=== PATIENT | female | born 1995 | race Two or more races ===

== ENCOUNTER 2018-05-06 16:28 | Outpatient (CLI) | payer OTHER ==
[2018-05-06 18:09] LABS: BACTERIA (WET MOUNT) 4+ BACTERIA SEEN; EPITHELIALS (WET MOUNT) 3+ EPITHELIALS SEEN; T.VAGINALIS (WET MOUNT) NO TRICHOMONAS SEEN; WBCS (WET MOUNT) RARE WBCS SEEN; YEAST (WET MOUNT) NO YEAST SEEN
[2018-05-06 18:13] LABS: APPEARANCE,URINE SLIGHTLY-CLOUDY; BILIRUBIN,URINE NEGATIVE (NEGATIVE); COLOR,URINE YELLOW; GLUCOSE, URINE NEGATIVE (NEGATIVE); KETONES,URINE NEGATIVE (NEGATIVE); LEUKOCYTE ESTERASE,URINE NEGATIVE (NEGATIVE); NITRITE,URINE NEGATIVE (NEGATIVE); PROTEIN,URINE NEGATIVE (NEGATIVE); URINE SPECIFIC GRAVITY 1.013
[2018-05-06 18:28] LABS: URINE AMPHETAMINES SCREEN NEGATIVE; URINE BARBITURATES SCREEN NEGATIVE; URINE BENZODIAZEPINES SCREEN NEGATIVE; URINE COCAINE SCREEN NEGATIVE; URINE MARIJUANA (THC) SCREEN NEGATIVE; URINE METHADONE SCREEN NEGATIVE; URINE PHENCYCLIDINE SCREEN NEGATIVE
[2018-05-06 19:36] LABS: CHLAM PCR NOT DETECTED (NOT DETECT); GON PCR NOT DETECTED (NOT DETECT)
--- NOTE | 2018-05-06 20:15 | RADIOLOGY REPORT (SQ) ---
EXAM DESCRIPTION: US LIMITED COMPLETED DATE/TME: 05/06/2018 17:51 CLINICAL HISTORY: complete OB sono, lovely, efw, placenta loc COMPARISON: None. FINDINGS: There is a single intrauterine in cephalic presentation. The placenta is posterior and within normal limits. Amniotic fluid index was calculated at 12.1 cm. heart motion was calculated at 114 bpm. The cervix measured 5.4 cm in length. The biparietal diameter measures 6.7 cm corresponding to 27 weeks. The head circumference measured 24.5 cm corresponding to 26 weeks and four days. Abdominal circumference measured 23.3 cm corresponding to 27 weeks and four days. The femur length measured 5.0 cm corresponding to 27 weeks. Composite gestational age is of 27 weeks with estimated of delivery August 05, 2018. anatomical survey was limited. Estimated weight of 1052 g +/- 156 g. IMPRESSION: Single live intrauterine of approximately 27 weeks. Limited anatomical survey.
== END 2018-05-06 20:20 | disposition home or self-care (01) ==
LOC: LC 16:28
PROVIDERS: ATTEND Obstetrics & Gynecology
PROC: 4A1HXCZ Monitoring of Products of Conception, Cardiac Rate, External Approach (ICD-10-PCS; principal; 2018-05-06)
DX: O46.93 Antepartum hemorrhage, unspecified, third trimester (principal); Z3A.27 27 weeks gestation of pregnancy
CPT/HCPCS: 59899; 87210; 81001; 80307; 87491; 87591; 76815; Q0114

== ENCOUNTER 2018-07-26 02:31 | Inpatient (IN) | payer OTHER ==
[2018-07-26 03:09] LABS: APPEARANCE,URINE SLIGHTLY-CLOUDY; BILIRUBIN,URINE NEGATIVE (NEGATIVE); COLOR,URINE YELLOW; GLUCOSE, URINE NEGATIVE (NEGATIVE); KETONES,URINE NEGATIVE (NEGATIVE); LEUKOCYTE ESTERASE,URINE NEGATIVE (NEGATIVE); NITRITE,URINE NEGATIVE (NEGATIVE); PROTEIN,URINE NEGATIVE (NEGATIVE); URINE SPECIFIC GRAVITY 1.011; UROBILINOGEN,URINE NEGATIVE mg/dL (<2.0)
[2018-07-26 03:27] LABS: URINE AMPHETAMINES SCREEN NEGATIVE; URINE BARBITURATES SCREEN NEGATIVE; URINE BENZODIAZEPINES SCREEN NEGATIVE; URINE COCAINE SCREEN NEGATIVE; URINE MARIJUANA (THC) SCREEN NEGATIVE; URINE METHADONE SCREEN NEGATIVE; URINE PHENCYCLIDINE SCREEN NEGATIVE
--- NOTE | 2018-07-26 04:55 | RADIOLOGY REPORT (SQ) ---
EXAM: Ultrasound limited CLINICAL DATA: 23-year-old female with history of abruption, rule out placental abruption. TECHNICAL DATA: Transabdominal ultrasound imaging was performed through the gravid uterus. This study was performed on 07/26/2018 at 4:18 AM on COMPARISON: Prior ultrasound OB limited performed on 05/06/2018. FINDINGS: ANATOMIC EVALUATION FETUS single POSITION cephalic HEART RATE 141 bpm AMNIOTIC FLUID 6.9 cm DAVID PLACENTA LOCATION anterior PREVIA low lying without evidence of abruption. CERVIX 2.9 cm in length CLINICAL DATES LMP 10/30/2017 [place] 38 weeks three days EDC 08/06/2018 IMPRESSION: 1. Single living intrauterine in cephalic presentation. 2. The placenta is anterior in location without evidence of placenta previa. However, a low-lying placenta is not excluded. There is no sonographic evidence to suggest placental abruption. 3. The amniotic fluid index measures 6.9 cm.
[2018-07-26] MEDS ORDERED: CITRIC ACID/SODIUM CITRATE ORAL SOLN 15 ML UDCUP ONE (06:33)
[2018-07-26] MEDS ORDERED: CEFAZOLIN 1 GM/D5W RTU 1 GM/50 ML RTUPB IV ONE ×2 (06:33→06:51)
[2018-07-26] MEDS ORDERED: OXYTOCIN 10 UNIT/ML VIAL ONE (06:46)
[2018-07-26] MEDS ORDERED: FENTANYL CITRATE INJ/PF 250 MCG/5 ML AMPULE ONE (06:46)
--- NOTE | 2018-07-26 07:02 | Admission Physical ---
Datetime Report Generated by CPN: 07/26/2018 07:02 CURRENT ADMISSION Chief Complaint: Other Indication for Induction: Not Applicable Admit Impression : Term, Intrauterine Admit Plan: Admit to Unit ALLERGIES Medication Allergies: Yes Medication Allergies: vancomycin (07/26/2018) Latex: No Latex Allergies OBSTETRICAL HISTORY EDC: 08/06/2018 00:00 : 2 Para: 1 Term: 1 Ectopic: 0 Livin Cesareans: 0 VBACs: 0 Multiple Births: 0 Gestational Diabetes: No Rh Sensitization: No Incompetent Cervix: No BIPIN: No Infertility: No ART Treatment: No Uterine Anomaly: No IUGR: No Hx Previous C/S: No Macrosomia: No Hx Loss/Stillborn: No PIH: No Hx : No Placenta Previa/Abruption: No Depression/PP Depression: No PTL/PROM: No Post Hemorrhage: No Current Procedures: Ultrasound Obstetrical History Comments: Hx hemmorage after last per pt subchorionic bleed, 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 [id number] MEDICAL HISTORY Diabetes: No Blood Transfusion: No Pulmonary Disease (Asthma, TB): No Breast Disease: No Hypertension: No Rheumatologist Surgery: No Heart Disease: No Hosp/Surgery: No Autoimmune Disorder: No Anesthetic Complications: No Kidney Disease: No Abnormal Pap Smear: No Neuro/Epilepsy: No Psychiatric Disorders: No Other Medical Diseases: No Hepatitis/Liver Disease: No Significant Family History: No Varicosities/Phlebitis: No Trauma/Violence : No Thyroid Dysfunction: No Medical History Comments: left knee surgery, chest tube age 5, T _ A INFECTIOUS HISTORY Gonorrhea: No Genital Herpes: No Chlamydia: No Tuberculosis: No Syphilis: No Hepatitis: No HIV/AIDS Exposure: No Rash or Viral Illness: No HPV: No PHYSICAL EXAM General: Normal HEENT: Normal Neurologic: Normal Thyroid: Normal Heart: Normal Lungs: Normal Breast: Deferred Back: Normal Abdomen: Normal Genitourinary Exam: Normal Extremities: Normal DTRs: Normal Pelvic Type: Adequate FETUS A EGA: 38.3 Admit Comment: abrutio placenta PLANS FOR LABOR AND DELIVERY Pain Management: Epidural Feeding Preference: Breast Benefit of Breast Feed Discussed: Yes Circumcision: Yes INFORMED CONSENT Signature: with User ID: [email or web address]
[2018-07-26] MEDS ORDERED: DIPH/PERTUSS(ACELL)/TETANUS VAC/PF 0.5 ML SYR (>=10YO) IM PRN (07:05)
[2018-07-26] MEDS ORDERED: PROMETHAZINE HCL INJ 25 MG/1 ML VIAL IV PRN (07:05)
[2018-07-26] MEDS ORDERED: OXYTOCIN/NORMAL SALINE 20 UNIT/1,000 ML RTUINJ IV PRN (07:05)
[2018-07-26] MEDS ORDERED: MEASLES,MUMPS&RUBELLA VACC/PF 0.5 ML VIAL SUBCUT PRN (07:05)
[2018-07-26] MEDS ORDERED: ACETAMINOPHEN 325 MG TABLET PO PRN (07:05)
[2018-07-26 07:15] LABS: ABSOLUTE BASOPHILS # (AUTO) 0.1 10^3/uL (0.0-0.2); ABSOLUTE EOSINOPHILS # (AUTO) 0.1 10^3/uL (0.0-0.6); ABSOLUTE LYMPHOCYTES (AUTO) 3.6 10^3/uL (0.5-4.7); ABSOLUTE MONOCYTES (AUTO) 1.2 10^3/uL (0.1-1.4); ABSOLUTE NEUT (AUTO) 10.5 10^3/uL (1.7-8.2); BASOPHILS % (AUTO) 0.9 % (0-2); EOSINOPHILS % (AUTO) 0.9 % (0-6); HEMATOCRIT 28.9 % (36.0-47.0); HEMOGLOBIN 9.7 g/dL (12.0-15.5); LYMPHOCYTES % (AUTO) 23.2 % (13-45); MEAN CORPUSCULAR HEMOGLOBIN 27.7 pg (27.0-33.4); MEAN CORPUSCULAR HGB CONC 33.7 g/dL (32.0-36.0); MEAN CORPUSCULAR VOLUME 82 fl (80-97); PLATELET COUNT 174 10^3/uL (150-450); RED BLOOD COUNT 3.51 10^6/uL (3.72-5.28); RED CELL DISTRIBUTION WIDTH 13.3 % (11.5-14.0); TOTAL CELLS COUNTED % (AUTO) 100 %; WHITE BLOOD COUNT 15.6 10^3/uL (4.0-10.5)
[2018-07-26] MEDS ORDERED: ACETAMINOPHEN 1,000 MG/100 ML RTUPB IV ONE (07:43)
[2018-07-26] MEDS ORDERED: PROPOFOL INJ 200 MG/20 ML VIAL IV ONE (07:59)
[2018-07-26] MEDS ORDERED: MEPERIDINE HCL/PF INJ 25 MG/1 ML DISP.SYRIN ONE (08:00)
--- NOTE | 2018-07-26 08:08 | RADIOLOGY REPORT (SQ) ---
EXAM DESCRIPTION: KUB/ABDOMEN (SINGLE VIEW) COMPLETED DATE/TIME: 07/26/2018 7:30 am REASON FOR STUDY: UNABLE TO COUNT INSTRUMENTS COMPARISON: None. NUMBER OF VIEWS: One view. TECHNIQUE: Supine portable radiographic image of the Abdomen introduced Acquired. LIMITATIONS: None. FINDINGS: Portable AP pelvis film in the OR after stat . No retained radiopaque surgical i nstruments are identified over the pelvis. Rivas catheter in the bladder. IMPRESSION: No retained radiopaque surgical instruments are identified over the pelvis TECHNICAL DOCUMENTATION: JOB ID: [id number] [employer]- All Rights Reserved Reading location - IP/workstation name: [email or web address]
--- NOTE | 2018-07-26 08:40 | OPERATIVE REPORT E ---
Operative Report NAME: URIEL STRICKLAND : 1995 AGE: 23Y DATE OF SURGERY: 07/26/2018 ROOM: LR200 PREOPERATIVE DIAGNOSIS: IUP early 38 weeks, abruption of placenta. POSTOPERATIVE DIAGNOSIS: IUP early 38 weeks, abruption of placenta. PROCEDURE: Emergency section, delivery of a viable infant with Apgars of 8 and 8. Weight is pending. SURGEON: Manish GARVEY M.D. ESTIMATED BLOOD LOSS: Less than 600 mL. TISSUE REMOVED OR ALTERED: Placenta. ANESTHESIA: General. DESCRIPTION OF PROCEDURE: The patient was placed in a supine position, rolled on her right side, prepped and draped in sterile fashion. A Pfannenstiel incision was made. Incision extended through the subcutaneous tissue and fascia with sharp dissection. The fascia was bluntly and sharply divided. Parietal peritoneum was entered with blunt dissection. Uterus nicked in the midline and extended bilaterally. Infant was then delivered through abdominal incision. Nose and mouth suctioned with a bulb syringe. Cord was clamped. was passed from the table. Placenta was manually extracted. There was evidence of an abruption. The uterus closed in 2 layers using 0 Vicryl first with a running stitch and a second Lembert stitch imbricating the first one. The fascia was then closed with 0 Vicryl and the skin was closed with subcu absorbable verenice. She tolerated it well and was taken to recovery in good condition and the infant went to nursery in good condition. DICTATING PHYSICIAN: Manish GARVEY M.D. [id number] Y#: [id number] ID: [id number] JOB#: [id number] ACCT: [id number] cc:Manish GARVEY M.D. >
[2018-07-26] MEDS ORDERED: MORPHINE SULFATE 10 MG/ML INJ ONE (08:45)
[2018-07-26] MEDS: MORPHINE SULFATE 10 MG/ML INJ IM PRN ×3 (09:02→19:10)
[2018-07-26 10:27] LABS: HEMATOCRIT 28.4 % (36.0-47.0); HEMOGLOBIN 9.4 g/dL (12.0-15.5); MEAN CORPUSCULAR HEMOGLOBIN 27.4 pg (27.0-33.4); MEAN CORPUSCULAR HGB CONC 33.3 g/dL (32.0-36.0); MEAN CORPUSCULAR VOLUME 82 fl (80-97); RED BLOOD COUNT 3.45 10^6/uL (3.72-5.28); RED CELL DISTRIBUTION WIDTH 13.4 % (11.5-14.0); WHITE BLOOD COUNT 13.8 10^3/uL (4.0-10.5)
[2018-07-26] MEDS: OXYCODONE-ACETAMINOPHEN 5-325 MG TABLET PO PRN ×3 (10:36→21:52)
[2018-07-26 10:50] LABS: PLATELET COUNT 96 10^3/uL (150-450)
[2018-07-26 10:53] LABS: ABSOLUTE LYMPHOCYTES# (MANUAL) 1.2 10^3/uL (0.5-4.7); ABSOLUTE MONOCYTES # (MANUAL) 0.7 10^3/uL (0.1-1.4); ABSOLUTE NEUTROPHILS# (MANUAL) 11.9 10^3/uL (1.7-8.2); BAND NEUTROPHILS % (MANUAL) 1 % (3-5); BASOPHILS % (MANUAL) 0 % (0-2); EOSINOPHILS % (MANUAL) 0 % (0-6); LYMPHOCYTES % (MANUAL) 9 % (13-45); MONOCYTES % (MANUAL) 5 % (3-13); SEGMENTED NEUTROPHILS % (MAN) 85 % (42-78); TOTAL CELLS COUNTED 100
[2018-07-26 10:54] LABS: PLATELET COMMENT DECREASED; RBC MORPHOLOGY COMMENT NORMO-CYTIC/CHROMIC
[2018-07-26] MEDS: DOCUSATE SODIUM 100 MG CAPSULE PO SCH ×2 (11:39→17:08)
[2018-07-26] MEDS: PRENATAL VITAMIN W DHA CAPSULE PO SCH (11:39)
[2018-07-26] MEDS: KETOROLAC TROMETHAMINE INJ/PF 30 MG/1 ML SDV IV SCH ×2 (13:22→23:15)
[2018-07-26] MEDS ORDERED: SUCCINYLCHOLINE CHLORIDE INJ 200 MG/10 ML VIAL ONE (13:48)
[2018-07-26] MEDS ORDERED: ONDANSETRON HCL INJ/PF 4 MG/2 ML SDV ONE (13:48)
[2018-07-26] MEDS ORDERED: METOCLOPRAMIDE HCL INJ/PF 10 MG/2 ML SDV ONE (13:48)
[2018-07-26] MEDS ORDERED: PHENYLEPHRINE HCL INJ/PF 10 MG/1 ML SDV ONE (13:48)
[2018-07-26] MEDS ORDERED: DEXAMETHASONE SOD PHOSPHATE INJ 4 MG/1 ML VIAL ONE (13:48)
[2018-07-26 16:32] LABS: HEMATOCRIT 24.8 % (36.0-47.0); HEMOGLOBIN 8.2 g/dL (12.0-15.5); MEAN CORPUSCULAR HGB CONC 33.1 g/dL (32.0-36.0); MEAN CORPUSCULAR VOLUME 82 fl (80-97); RED BLOOD COUNT 3.04 10^6/uL (3.72-5.28); RED CELL DISTRIBUTION WIDTH 13.6 % (11.5-14.0); WHITE BLOOD COUNT 11.1 10^3/uL (4.0-10.5)
[2018-07-26 16:52] LABS: PLATELET COUNT 99 10^3/uL (150-450)
[2018-07-27] MEDS: OXYCODONE-ACETAMINOPHEN 5-325 MG TABLET PO PRN ×5 (02:18→21:33)
[2018-07-27] MEDS: KETOROLAC TROMETHAMINE INJ/PF 30 MG/1 ML SDV IV SCH ×3 (05:58→23:07)
[2018-07-27 06:45] LABS: HEMATOCRIT 22.5 % (36.0-47.0); MEAN CORPUSCULAR HEMOGLOBIN 27.4 pg (27.0-33.4); MEAN CORPUSCULAR HGB CONC 33.3 g/dL (32.0-36.0); MEAN CORPUSCULAR VOLUME 82 fl (80-97); RED BLOOD COUNT 2.74 10^6/uL (3.72-5.28); RED CELL DISTRIBUTION WIDTH 13.5 % (11.5-14.0); WHITE BLOOD COUNT 6.9 10^3/uL (4.0-10.5)
[2018-07-27 06:49] LABS: HEMOGLOBIN 7.5 g/dL (12.0-15.5)
[2018-07-27 07:11] LABS: PLATELET COUNT 87 10^3/uL (150-450)
--- NOTE | 2018-07-27 08:18 | Delivery Summary ---
Del Sum A-C Datetime Report Generated by CPN: 07/27/2018 08:17 DELIVERY PERSONNEL DELIVERY PERSONNEL: [id number] Delivery Doctor:: Maciel Perry MD Delivery Doctor:: Maciel Perry MD Anesthesiologist:: Alex Orellana MD Anesthesiologist:: Alex Orellana MD PROJECT DEVELOPMENT ENGINEER:: Paco Ndiaye CRNA PROJECT DEVELOPMENT ENGINEER:: Paco Ndiaye CRNA Labor and Delivery Nurse:: Megha Oconnell RNoutdoor studies director Nurse:: Ileana Brian RN Nurse Tech:: Megha Oconnell RN [employer]/FILLING MACHINE OPERATOR: Marlen Roque, QUALITY ASSOCIATE [employer]/FILLING MACHINE OPERATOR: Marlen Roque QUALITY ASSOCIATE [employer]/FILLING MACHINE OPERATOR: Xiomara Stiles MATERNAL INFORMATION Delivery Anesthesia: General Maternal Complications: Abruptio Placenta LABOR SUMMARY EDC: 08/06/2018 00:00 No. Babies in Womb: 1 Attempted: No LABOR INFORMATION Reason for Induction: Not Applicable Oxytocin: N/A Group B Beta Strep: negative Antibiotics # of Doses: 0 Antibiotics Time of Last Dose: N/A Name of Antibiotic Given: N/A Steroids Given: None Reason Steroids Not Administered: Not Applicable MEMBRANES Membranes Rupture Method: Artificial Rupture of Membranes: 07/26/2018 06:43 Length of Rupture (hr): 0.00 Amniotic Fluid Color: Clear Amniotic Fluid Amount: Moderate VAGINAL DELIVERY Episiotomy: None Laceration #1: None Laceration Extension #1: N/A Laceration Repair: Not Applicable CSECTION DELIVERY Primary Indication: Nonreassuring Status Secondary Indication: Abruptio Placenta CSection Urgency: Emergency CSection Incidence: Primary Labor: Labor Elective: Nonelective CSection Incision: Lower Uterine Transverse CSection Incision: Lower Uterine Transverse BABY A INFORMATION Infant Delivery Date/Time: 07/26/2018 06:43 Method of Delivery: Born in Route : No : N/A Forceps: N/A Vacuum Extraction: N/A Shoulder Dystocia : No PRESENTATION/POSITION BABY A Presentation: Cephalic SCORES BABY A Heart Rate 1 min: >100 bpm Resp Effort 1 min: Good Cry Reflex Irritability 1 min: Cough or Sneeze or Pulls Away Muscle Tone 1 min: Active Motion Color 1 min: Blue/Pale Resuscitation Effort 1 min: Tactile Stimulation SCORE 1 MIN: 8 Heart Rate 5 min: >100 bpm Resp Effort 5 min: Good Cry Reflex Irritability 5 min: Cough or Sneeze or Pulls Away Muscle Tone 5 min: Active Motion Color 5 min: Blue/Pale Resuscitation Effort 5 min: Tactile Stimulation SCORE 5 MIN: 8 INFANT INFORMATION BABY A Gestational Age at Delivery: 38.3 Gestational Status: Early Term- 37- 38.6 Weeks Outcome : Liveborn Infant Condition : Stable Sex: Male WEIGHT/LENGTH BABY A Birthweight (gm): 3330 Infant Weight (lb): 7 Infant Weight (oz): 5 Length (in): 19.50 Infant Length (cm): 49.53 CORD INFORMATION BABY A No. Cord Vessels: 3 Nuchal Cord : N/A Cord Blood Taken: Yes-For Storage (Mom's Blood type +) ASSESSMENT BABY A Complications: None Physical Findings at Delivery: Within Normal Limits Transferred To: [facility] BABY B INFORMATION : N/A SIGNATURES Signature: with User ID: [email or web address]
[2018-07-27] MEDS: DOCUSATE SODIUM 100 MG CAPSULE PO SCH ×2 (10:08→18:31)
[2018-07-27] MEDS: PRENATAL VITAMIN W DHA CAPSULE PO SCH (10:08)
[2018-07-27] MEDS ORDERED: MORPHINE SULFATE 10 MG/ML INJ IV ONE (10:30)
--- NOTE | 2018-07-27 10:32 | PDOC PROGRESS REPORT ---
Subjective-OB Progress Note for:: 07/27/18 - POD#1, s/p Primary , abruption. pt with PPH approx 1500 ml yesterday. Hx of bicornuate uterus. Pt is , A+, Rubella Non-Immune. C/o incisional pain, unable to take Motrin due to low Plts. Not time for more Percocet, so will give a one time dose of IM Morphine. Physical Exam (OB) Vital Signs: Temp Pulse Resp BP Pulse Ox 97.9 F 122 H 18 134/87 H 100 07/27/18 09:32 07/27/18 09:41 07/27/18 09:41 07/27/18 09:41 07/27/18 09:41 Intake & Output 07/26/18 07/27/18 07/28/18 06:59 06:59 06:59 Intake Total 1479 Output Total 1875 Balance -396 Weight 72.665 kg - General General Appearance: Appears well, Alert In distress: Mild - PIH/Pre-Eclampsia DTR's: 2 + Clonus: Negative Headache: Absent Epigastric Pain: No Visual Changes: No - Dressing Removed: No Incision: Dressing - Lochia Lochia Amount: Small 10-25 ml Lochia Color: Rubra/Red - Abdomen Description: Tender, Soft Hernia Present: No Fundal Description: Firm, Midline Fundal Height: u/u - u/2 - HEENT Eyes: Normal Ears: Normal - Respiratory Respiratory Status: No respiratory distress Chest Status: Nontender Breath sounds: Clear - Cardiovascular Rhythm: Regular Heart Sounds: Normal auscultation - Abdominal Inspection: Normal Distension: No distension Abdominal Notes: +bowel sounds present - Genitourinary Female External exam: Normal Genitourinary Note: voiding - Extremities Upper extremity: Normal inspection Lower extremities: Normal inspection - Neurological Cognition: Normal Orientation: AAOx4 - Psychological Associated symptoms: Normal affect, Normal mood - Skin Skin Temperature: Warm Skin Moisture: Dry Objective-Diagnostic Laboratory: 07/27/18 06:10 07/26/18 07/26/18 07/27/18 10:00 15:59 06:10 WBC 13.8 H 11.1 H 6.9 RBC 3.45 L 3.04 L 2.74 L Hgb 9.4 L 8.2 L 7.5 L Hct 28.4 L 24.8 L 22.5 L MCV 82 82 82 MCH 27.4 27.0 27.4 MCHC 33.3 33.1 33.3 RDW 13.4 13.6 13.5 Plt Count 96 L 99 L 87 L Seg Neutrophils % Not Reportable Lymphocytes % Not Reportable Monocytes % Not Reportable Eosinophils % Not Reportable Basophils % Not Reportable Absolute Neutrophils Not Reportable Absolute Lymphocytes Not Reportable Absolute Monocytes Not Reportable Absolute Eosinophils Not Reportable Absolute Basophils Not Reportable Assessment and Plan(PN) - Assessment and Plan (1) Acute blood loss anemia Is this a current diagnosis for this admission?: Yes (2) Bicornuate uterus affecting in third trimester, antepartum Is this a current diagnosis for this admission?: Yes (3) Anemia with low platelet count Is this a current diagnosis for this admission?: Yes (4) Placental abruption, delivered, current hospitalization Is this a current diagnosis for this admission?: Yes (5) hemorrhage Qualifiers: hemorrhage type: coagulation defects Qualified Code(s): O72.3 - coagulation defects Is this a current diagnosis for this admission?: Yes (6) Vaginal delivery Is this a current diagnosis for this admission?: No - Time Spent with Patient Time with patient: Less than 15 minutes Medications reviewed and adjusted accordingly: Yes - Disposition Anticipated Discharge: Home Within: within 48 hours
[2018-07-27] MEDS: SIMETHICONE 80 MG TAB.CHEW PO PRN (16:31)
[2018-07-28] MEDS: OXYCODONE-ACETAMINOPHEN 5-325 MG TABLET PO PRN ×6 (02:14→21:47)
[2018-07-28] MEDS: KETOROLAC TROMETHAMINE INJ/PF 30 MG/1 ML SDV IV SCH ×3 (06:23→21:57)
[2018-07-28 07:06] LABS: HEMATOCRIT 21.3 % (36.0-47.0); MEAN CORPUSCULAR HEMOGLOBIN 27.9 pg (27.0-33.4); MEAN CORPUSCULAR HGB CONC 33.9 g/dL (32.0-36.0); MEAN CORPUSCULAR VOLUME 82 fl (80-97); RED BLOOD COUNT 2.59 10^6/uL (3.72-5.28); RED CELL DISTRIBUTION WIDTH 13.9 % (11.5-14.0); WHITE BLOOD COUNT 6.5 10^3/uL (4.0-10.5)
[2018-07-28 08:07] LABS: PLATELET COUNT 98 10^3/uL (150-450)
[2018-07-28 08:08] LABS: HEMOGLOBIN 7.2 g/dL (12.0-15.5)
[2018-07-28] MEDS ORDERED: NORMAL SALINE 250 ML IV PRN (09:15)
--- NOTE | 2018-07-28 09:21 | PDOC PROGRESS REPORT ---
Subjective-OB Progress Note for:: 07/28/18 Subjective: Sitting up in bed with baby, hsb sleeping, feels SOB and weak, discussing stat c/s, passing gas, eating, pain under control Physical Exam (OB) Vital Signs: Temp Pulse Resp BP Pulse Ox 97.9 F 106 H 16 110/64 97 07/28/18 07:24 07/28/18 07:24 07/28/18 07:24 07/28/18 07:24 07/28/18 07:24 Intake & Output 07/27/18 07/28/18 07/29/18 06:59 06:59 06:59 Intake Total 1479 1600 Output Total 1875 Balance -396 1600 - PIH/Pre-Eclampsia DTR's: 2 + Clonus: Negative Headache: Absent Epigastric Pain: No Visual Changes: No - Dressing Removed: No Incision: Dressing - Lochia Lochia Amount: Scant < 10 ml Lochia Color: Rubra/Red - Abdomen Description: Tender Hernia Present: No Fundal Description: Firm, Midline Fundal Height: u/u - u/2 Objective-Diagnostic Laboratory: 07/28/18 06:40 07/28/18 06:40 WBC 6.5 RBC 2.59 L Hgb 7.2 L Hct 21.3 L MCV 82 MCH 27.9 MCHC 33.9 RDW 13.9 Plt Count 98 L Assessment and Plan(PN) - Assessment and Plan (1) delivery delivered Is this a current diagnosis for this admission?: Yes (2) Acute blood loss anemia Is this a current diagnosis for this admission?: Yes (3) Bicornuate uterus affecting in third trimester, antepartum Is this a current diagnosis for this admission?: Yes (4) Anemia with low platelet count Is this a current diagnosis for this admission?: Yes (5) Placental abruption, delivered, current hospitalization Is this a current diagnosis for this admission?: Yes (6) hemorrhage Qualifiers: hemorrhage type: coagulation defects Qualified Code(s): O72.3 - coagulation defects Is this a current diagnosis for this admission?: Yes - Time Spent with Patient Time with patient: Less than 15 minutes Medications reviewed and adjusted accordingly: Yes - Disposition Anticipated Discharge: Home Within: within 24 hours
[2018-07-28] MEDS: DOCUSATE SODIUM 100 MG CAPSULE PO SCH ×2 (09:59→17:08)
[2018-07-28] MEDS: PRENATAL VITAMIN W DHA CAPSULE PO SCH (09:59)
[2018-07-28 22:22] LABS: HEMATOCRIT 27.4 % (36.0-47.0); MEAN CORPUSCULAR HEMOGLOBIN 28.6 pg (27.0-33.4); MEAN CORPUSCULAR HGB CONC 34.2 g/dL (32.0-36.0); MEAN CORPUSCULAR VOLUME 84 fl (80-97); PLATELET COUNT 102 10^3/uL (150-450); RED BLOOD COUNT 3.27 10^6/uL (3.72-5.28); RED CELL DISTRIBUTION WIDTH 13.9 % (11.5-14.0); WHITE BLOOD COUNT 4.8 10^3/uL (4.0-10.5)
[2018-07-28 22:24] LABS: HEMOGLOBIN 9.4 g/dL (12.0-15.5)
[2018-07-28] MEDS: SIMETHICONE 80 MG TAB.CHEW PO PRN (23:12)
[2018-07-29] MEDS: OXYCODONE-ACETAMINOPHEN 5-325 MG TABLET PO PRN ×4 (03:24→16:32)
[2018-07-29] MEDS: KETOROLAC TROMETHAMINE INJ/PF 30 MG/1 ML SDV IV SCH ×2 (08:18→16:31)
[2018-07-29] MEDS: PRENATAL VITAMIN W DHA CAPSULE PO SCH (09:57)
[2018-07-29] MEDS: DOCUSATE SODIUM 100 MG CAPSULE PO SCH (09:57)
[2018-07-29] MEDS: SIMETHICONE 80 MG TAB.CHEW PO PRN (12:09)
[2018-07-29 12:48] VITALS: BP 103/67
--- NOTE | 2018-07-29 15:02 | PDOC DISCHARGE SUMMARY ---
Final Diagnosis Discharge Date: 07/29/18 - Final Diagnosis (1) delivery delivered Is this a current diagnosis for this admission?: Yes (2) hemorrhage Is this a current diagnosis for this admission?: Yes Discharge Data - Discharge Medication Prescriptions: Ibuprofen [Motrin 800 mg Tablet] 800 mg PO Q8HP PRN #90 tablet PRN Reason: Oxycodone HCl/Acetaminophen [Percocet 5-325 mg Tablet] 1 tab PO Q4HP PRN #30 tablet PRN Reason: Pnv72/Iron,Gluc/Folic/Dss/Dha [Citranatal 90 Dha Combo Pack] 1 each PO DAILY 90 Days combo..pkg Home Medications: Ibuprofen [Motrin 800 mg Tablet] 800 mg PO Q8HP PRN #90 tablet 07/29/18 Oxycodone HCl/Acetaminophen [Percocet 5-325 mg Tablet] 1 tab PO Q4HP PRN #30 tablet 07/29/18 Pnv72/Iron,Gluc/Folic/Dss/Dha [Citranatal 90 Dha Combo Pack] 1 each PO DAILY 90 Days combo..pkg 07/29/18 Simethicone [Mylicon 80 mg Chewable Tablet] 80 mg PO QIDP PRN tab.chew 07/29/18 Procedures: NST Intrapartum Procedure(s): : Low Cervical, Transverse - Diagnosis Test Laboratory: Temp Pulse Resp BP Pulse Ox 98.2 F 86 16 103/67 100 07/29/18 12:47 07/29/18 12:47 07/29/18 12:47 07/29/18 12:47 07/29/18 12:47 07/26/18 07/26/18 07/26/18 02:35 06:55 10:00 RBC 3.51 L 3.45 L Hgb 9.7 L 9.4 L Hct 28.9 L 28.4 L Urine Opiates Screen NEGATIVE 07/26/18 07/27/18 07/28/18 15:59 06:10 06:40 RBC 3.04 L 2.74 L 2.59 L Hgb 8.2 L 7.5 L 7.2 L Hct 24.8 L 22.5 L 21.3 L Urine Opiates Screen 07/28/18 22:03 RBC 3.27 L Hgb 9.4 L D Hct 27.4 L Urine Opiates Screen - Discharge information/Instructions Discharge Activity: Balance Activity w/Rest, Pelvic Rest, No tub bath Discharge Diet: Regular Disposition: HOME, SELF-CARE Follow up with: [facility] in: 1, Weeks
[2018-07-31] MEDS ORDERED: IBUPROFEN 800 MG TABLET PO SCH (12:00)
== END 2018-07-29 16:35 | disposition home or self-care (01) | DRG 787 ==
LOC: LC 02:31 → LR 06:36 → 2S 10:34 → UNDODISIN 07-28 14:49
PROVIDERS: ADMIT Obstetrics & Gynecology Gynecology; ATTEND Obstetrics & Gynecology Gynecology
PROC: 10D00Z1 Extraction of Products of Conception, Low, Open Approach (ICD-10-PCS; principal; 2018-07-26)
PROC: 30233N1 Transfusion of Nonautologous Red Blood Cells into Peripheral Vein, Percutaneous Approach (ICD-10-PCS; 2018-07-28)
DX: O45.93 Premature separation of placenta, unspecified, third trimester (principal); O72.2 Delayed and secondary postpartum hemorrhage; D62 Acute posthemorrhagic anemia; O76 Abnormality in fetal heart rate and rhythm complicating labor and delivery; O34.03 Maternal care for unspecified congenital malformation of uterus, third trimester; Q51.3 Bicornate uterus; O99.02 Anemia complicating childbirth; Z3A.38 38 weeks gestation of pregnancy; Z37.0 Single live birth
CPT/HCPCS: 1961; 36415; 36430; 74018; 76815; 80307; 81005; 85025; 85027; 86592; 86850; 86900; 86901; 86920; 88307; 94799; J0131; J0330; J0690; J1100; J2175; J2270; J2370; J2405; J2590; J2704; J2765; J3010; J3490; P9016